=== PATIENT | female | born 1975 | race American Indian/Alaskan Native ===

== ENCOUNTER 2018-01-21 23:11 | Emergency (ER) | payer BC ==
[2018-01-21] MEDS ORDERED: diphenhydrAMINE 50 MG/ML SDV IVPUSH ONE (23:44)
[2018-01-21] MEDS ORDERED: Sodium Chloride 0.9% 10 ML Syringe FLUSH PRN (23:44)
[2018-01-21] MEDS ORDERED: Sodium Chloride 0.9% 1,000 ML IV ONE (23:44)
[2018-01-22] MEDS ORDERED: Ketorolac 30 MG/ML SDV IVPUSH ONE (00:34)
--- NOTE | 2018-01-22 01:10 | EDM.PDOC ---
ED HPI GENERAL MEDICAL PROBLEM - General Chief Complaint: ENT Problem Stated Complaint: CANT SWALLOW [id number] Time Seen by Provider: 01/21/18 23:38 Source of Information: Reports: Patient, Family, RN, RN Notes Reviewed History Limitations: Reports: No Limitations - History of Present Illness INITIAL COMMENTS - FREE TEXT/NARRATIVE: Pt presents to the ER with c/o not being able to swallow well. She states she took ibuprofen, and about 1 hour later felt as though she could not swallow or produce saliva. She states she had been taking ibuprofen today for a headache, and this was the third time she had taken the ibuprofen today. Pt states she does have several medication allergies. Patient also states she has been under a lot of stress lately. 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 - Past Surgical History GI Surgical History: Reports: Appendectomy Female Surgical History: Reports: Section, Oophorectomy Social & Family History - Family History Family Medical History: Noncontributory - Tobacco Use Smoking Status *Q: Current Every Day Smoker Years of Tobacco use: 25 Packs/Tins Daily: 0.5 Used Tobacco, but Quit: No - Caffeine Use Caffeine Use: Reports: Coffee - Recreational Drug Use Recreational Drug Use: No ED ROS GENERAL - Review of Systems Review Of Systems: ROS reveals no pertinent complaints other than HPI. ED EXAM, GENERAL - Physical Exam Exam: See Below Exam Limited By: No Limitations General Appearance: Alert, WD/WN, Mild Distress Eye Exam: Bilateral Eye: EOMI, Normal Inspection Ears: Normal External Exam, Hearing Grossly Normal Nose: Normal Inspection, Normal Mucosa, No Blood Throat/Mouth: Normal Inspection, Normal Lips, Normal Teeth, Normal Gums, Normal Oropharynx, No Airway Compromise. No: Normal Voice (raspy at times) Head: Atraumatic, Normocephalic Neck: Normal Inspection, Supple, Non-Tender, Full Range of Motion Respiratory/Chest: No Respiratory Distress, Lungs Clear, Normal Breath Sounds, No Accessory Muscle Use, Chest Non-Tender Cardiovascular: Normal Peripheral Pulses, Regular Rate, Rhythm, No Edema, No Gallop, No JVD, No Murmur, No Rub Peripheral Pulses: 2+: Radial (L), Radial (R) GI/Abdominal: Normal Bowel Sounds, Soft, Non-Tender, No Organomegaly, No Distention, No Abnormal Bruit, No Mass (Female) Exam: Deferred Rectal (Female) Exam: Deferred Back Exam: Normal Inspection, Full Range of Motion, NT Extremities: Normal Inspection, Normal Range of Motion, Non-Tender, Normal Capillary Refill, No Pedal Edema Neurological: Alert, Oriented, CN II-XII Intact, Normal Cognition, Normal Gait, Normal Reflexes, No Motor/Sensory Deficits Psychiatric: Anxious Skin Exam: Warm, Dry, Intact, Normal Color, No Rash Lymphatic: No Adenopathy Course - Vital Signs Last Recorded V/S: Last Vital Signs Temp 99.3 F 01/21/18 23:16 Pulse 90 01/21/18 23:16 Resp 18 01/21/18 23:16 BP 135/83 01/21/18 23:16 Pulse Ox 100 01/21/18 23:16 - Orders/Labs/Meds Orders: Active Orders 24 hr Category Date Time Status Peripheral IV Care [RC] . DIRECTED Care 01/21/18 23:44 Active Peripheral IV Insertion Adult [OM.PC] Stat Oth 01/21/18 23:44 Ordered Meds: Medications Discontinued Medications Generic Name Dose Route Start Last Admin Trade Name Freq PRN Reason Stop Dose Admin Diphenhydramine HCl 25 mg 01/21/18 23:44 01/21/18 23:55 Benadryl IVPUSH 01/21/18 23:45 25 mg ONETIME ONE Administration Sodium Chloride 1,000 mls @ 175 mls/hr 01/21/18 23:44 01/21/18 23:56 Normal Saline IV 01/22/18 05:26 175 mls/hr .BOLUS ONE Administration Ketorolac Tromethamine 30 mg 01/22/18 00:34 01/22/18 00:37 Toradol IVPUSH 01/22/18 00:35 30 mg ONETIME ONE Administration Sodium Chloride 10 ml 01/21/18 23:44 01/21/18 23:57 Saline Flush FLUSH 10 ml ASDIRECTED PRN Administration Keep Vein Open - Radiology Interpretation Free Text/Narrative:: Pt states she felt better after 1 Liter of fluids, and the benadryl. She states her throat feels better. She also states the headache has lessened, but is still present. Departure - Departure Time of Disposition: : Disposition: Home, Self-Care 01 Condition: Fair Clinical Impression: Sensation of swollen throat Headache Qualifiers: Headache type: unspecified Headache chronicity pattern: acute headache Intractability: not intractable Qualified Code(s): R51 - Headache - Discharge Information Instructions: Tension Headache, [id number] Forms: ED Department Discharge Additional Instructions: May take tylenol or ibuprofen as directed for pain Drink plenty of water Rest in a dark room May use benadryl as directed for sensation of throat swelling or any type of allergic reaction Follow up with your primary care facility Return to ER with any worsening symptoms. - My Orders Last 24 Hours: My Active Orders 01/21/18 23:44 Peripheral IV Care [RC] . DIRECTED Peripheral IV Insertion Adult [OM.PC] Stat - Assessment/Plan Last 24 Hours: My Active Orders 01/21/18 23:44 Peripheral IV Care [RC] . DIRECTED Peripheral IV Insertion Adult [OM.PC] Stat
== END 2018-01-22 01:14 | disposition home or self-care (01) ==
LOC: DL.ED 23:11
DX: R51 Headache (principal); R22.1 Localized swelling, mass and lump, neck; F17.210 Nicotine dependence, cigarettes, uncomplicated; Z88.5 Allergy status to narcotic agent; Z88.2 Allergy status to sulfonamides; Z88.8 Allergy status to other drugs, medicaments and biological substances
CPT/HCPCS: 96361; 96374; 96375; 99283; J1200; J1885; J7030; J7050